=== PATIENT | male | born 2000 | race Asian ===

== ENCOUNTER 2018-05-13 17:14 | Emergency (ER) | payer OTHER ==
[~2018-05-13] VITALS: Ht 185.4 cm; Wt 74.8 kg
[2018-05-13 17:16] VITALS: BP 151/95
== END 2018-05-13 18:49 | disposition home or self-care (01) ==
LOC: ED 18:35
DX: Z77.21 Contact with and (suspected) exposure to potentially hazardous body fluids (principal); F17.200 Nicotine dependence, unspecified, uncomplicated
CPT/HCPCS: 36415; 86705; 86706; 86803; 87340; 87806; 99284; G0475